=== PATIENT | female | born 2000 | race Caucasian/White ===

== ENCOUNTER 2019-04-17 21:30 | Emergency (ER) | payer MEDICAID, SELFPAY ==
[2019-04-17 21:31] VITALS: BP 134/74; PULSE 60; RESP 16; TEMP 36.6; O2SAT 98; BMI 32.8
--- NOTE | 2019-04-17 22:29 | ED.VISSUMM ---
- ER Visit Summary Date of Service: 04/17/19 Chief Complaint: Nausea, vomiting and diarrhea History of Present Illness: The patient is a 18 F no seen in past medical or surgical history. Last menstrual period was 04/03/2019. Patient states she is had nausea vomiting and diarrhea since Thursday but the diarrhea is since subsided. No hematemesis. No fever. No abdominal pain. No dysuria. Physical Examination: Young female no acute distress. Vital signs stable afebrile. She does not look septic or toxic. Mildly dehydrated. HEENT exam mild dry mixed memories. Neck nontender no lymphadenopathy. Lungs clear to auscultation bilaterally. Heart regular rhythm no murmur. Abdomen soft nontender normal bowel sounds no peritoneal signs. Patient moving all 4 extremities. No edema. Back nontender. Neurologically she is awake alert with no focal motor deficits. Test Results: None Emergency Department Course and Treatment: Treated with IV fluids x1 L IV Zofran. Repeat exam at 2345. She was actively vomiting again. Was given IV Phenergan. Patient be turned over to the overnight physician for reevaluation and final disposition. She is doing well current with her being discharged home. Treatment Plan: Discharge home. Zofran as needed for nausea. Fluids and rest. Increase diet as tolerated. Return if worse Disposition: Discharge Impression: Acute viral gastroenteritis Mild dehydration This note was generated with [employer]ienceView dictation software. It may contain incorrect words, spelling, and punctuation that were not noted in review of the chart prior to signing ED Disposition - Plan for ED Patient: Disposition: Home or Assisted Living Instructions: ED Gastroenteritis Viral Prescriptions: Ondansetron [Zofran Odt] 4 mg PO Q8H PRN PRN #10 tab PRN Reason: Nausea Referrals: Kash Salinas MD [STAFF PHYSICIAN] - 3-5 Days if not improving Additional Instructions: Plenty of fluids and rest. Increase diet as tolerated. Zofran as needed for nausea. You may dissolve and underneath her tongue or swallowed. Return if feeling worse or follow-up if not improving.
--- NOTE | 2019-04-17 22:32 | DCINST.ED_ITS ---
ED Disposition - Plan for ED Patient: Disposition: Home or Assisted Living Instructions: ED Gastroenteritis Viral Prescriptions: Ondansetron [Zofran Odt] 4 mg PO Q8H PRN PRN #10 tab PRN Reason: Nausea Referrals: Kash Salinas MD [STAFF PHYSICIAN] - 3-5 Days if not improving Additional Instructions: Plenty of fluids and rest. Increase diet as tolerated. Zofran as needed for nausea. You may dissolve and underneath her tongue or swallowed. Return if feeling worse or follow-up if not improving.
[2019-04-17] MEDS: Ondansetron 4 MG/2 ML Vial IV (22:53)
[2019-04-17] MEDS: 0.9% Normal Saline 1,000 ML 1000 ML IV (22:56)
[2019-04-18] MEDS: proMETHazine 25 MG/ML Syringe 12.5 MG IV (00:01)
[2019-04-18 00:18] VITALS: BP 148/91; PULSE 55; RESP 18; O2SAT 100
[2019-04-18] MEDS: proCHLORPERazine 10 MG/2 ML Vial IV (00:42)
[2019-04-18] MEDS: DiphenhydrAMINE 50 MG/ML Syringe 25 MG IV (00:42)
[2019-04-18 01:31] VITALS: BP 133/62; PULSE 58; RESP 18; O2SAT 100
== END 2019-04-18 01:33 | disposition home or self-care (01) ==
PROVIDERS: Emergency Provider Emergency Medicine
DX: A08.4 Viral intestinal infection, unspecified (principal); E86.0 Dehydration; Z72.0 Tobacco use
CPT/HCPCS: 96361; 96374; 96375; 99284; J7030; A4216; J2405

== ENCOUNTER 2019-09-08 14:24 | Emergency (ER) | payer MEDICAID, SELFPAY ==
[2019-09-08 14:25] VITALS: BP 129/92; PULSE 68; RESP 17; TEMP 37.2; O2SAT 100; BMI 29.9
--- NOTE | 2019-09-08 14:43 | CT_ITS ---
STUDY: CT BRAIN WITHOUT CONTRAST REASON FOR EXAM: Female, 19 years old. Loss of consciousness RADIATION DOSAGE (If Supplied By Facility): CTDIvol = ( 44.99 ) mGy, DLP = ( 745.49 ) mGycm TECHNIQUE: Transaxial CT imaging of the brain was performed without administration of intravenous contrast material. Individualized dose optimization techniques were used for this CT. COMPARISON: No relevant priors. FINDINGS: The jimmy, medulla, and cerebellum appear to be normal. The ventricles and sulci are normal in size and shape. The basal ganglia appear to be normal. The inner and outer tables of the skull are intact. The frontal, ethmoid, maxillary, and sphenoid sinuses are normal. The mastoid air cells are normal. CT/Brain/Head without Contrast IMPRESSION: Normal unenhanced CT scan of the brain. Electronically Signed: Austin Alberts, at 15:51 EDT Tel , Service support ,
--- NOTE | 2019-09-08 14:43 | EKG12_ITS ---
Test Reason : SEIZURE Blood Pressure : / mmHG Vent. Rate : 064 BPM Atrial Rate : 064 BPM P-R Int : 130 ms QRS Dur : 082 ms QT Int : 398 ms P-R-T Axes : -18 049 039 degrees QTc Int : 410 ms Normal sinus rhythm with sinus arrhythmia Normal ECG Confirmed by NOÉ MCKEON, NIKI ([id number]), state editor MARCELINO GONZALEZ ([id number]) on 09/14/2019 9:35:32 AM Referred By: MAXIMILIANO Confirmed By:MONA UMANZOR MD
--- NOTE | 2019-09-08 14:52 | NURSING ---
NO OLD EKGS
[2019-09-08 15:06] LABS: Absolute Lymphocyte Count 2.07 X10^3/uL (0.83-4.51); Absolute Neutrophil Count 4.7 X10^3/uL (2.0-7.7); Basophil# 0.05 X10^3/uL; Basophil% 0.7 % (0-1); Eosinophil# 0.17 X10^3/uL; Eosinophils% 2.3 % (0-5); Hematocrit 43.4 % (37-47); Hemoglobin 14.3 g/dL (12.0-15.0); Lymphocyte # 2.07 X10^3/ul (4.0); Lymphocyte % 27.9 % (19-41); Mean Corp Hgb Conc 32.9 g/dL (32-36); Mean Corpuscular Hgb 30.2 pg (27.0-32.0); Mean Corpuscular Volume 91.8 fL (81-99); Monocyte# 0.44 X10^3/uL; Monocyte% 5.9 % (0-10); NRBC Flagged by Analyzer 0 % (0-5); Neutrophil # 4.67 X10^3/uL (2.7-7.7); Neutrophil % 62.9 % (47-70); Platelet Count 298 K/mm3 (150-450); RBC Distribution Width CV 13.1 % (11.6-14.6); RBC Distribution Width SD 44.6 fl (35.1-43.9); Red Blood Count 4.73 M/mm3 (4.2-5.4); White Blood Count 7.4 K/mm3 (4.4-11.0)
[2019-09-08] MEDS: 0.9% Normal Saline 1,000 ML 1000 ML IV (15:13)
[2019-09-08 15:22] LABS: ALB/GLOB Ratio 0.9 RATIO (0.9-2.4); AST(SGOT) 16 U/L (15-37); Alanine Aminotransfer ALT/SGPT 23 U/L (13-56); Albumin, Serum 3.9 g/dL (3.2-5.0); Alkaline Phosphatase 102 U/L (45-117); Anion Gap 7 (5-15); BUN 7 mg/dL (7-18); BUN/Creat Ratio 9.3 RATIO (10-20); Calcium,Total 9.3 mg/dL (8.5-10.1); Chloride 109 mmol/L (98-107); Creatinine, Serum 0.76 mg/dL (0.55-1.02); EST Glomerular Filtration Rate 104 mL/min (>60); Est Glom Filt Rate - Afr Amer 125 mL/min (>60); Estimated Creatinine Clearance 110.54 ml/min; Globulin 4.3 g/dL (2.2-4.2); Glucose 81 mg/dL (74-106); Protein, Total 8.2 g/dL (6.4-8.2); Sodium Level 141 mmol/L (136-145)
--- NOTE | 2019-09-08 16:03 | ED.VISSUMM ---
- ER Visit Summary Date of Service: 09/08/19 Chief Complaint: Seizure History of Present Illness: The patient is a [address] Del Valle. She reports that 10 days ago she was at a concert and been standing outside for approximately 2 hours when she began feeling shaky. She states that she felt like her vision started to Jorden out and then she fell to the ground. She had an episode of tonic-clonic movement. She is unsure how long this lasted. She did bite her tongue. She was not incontinent of urine. She did have a postictal period. Patient denies any alcohol or drug use prior to this. She has not had any seizure since activity since this. However, she feels shaky. Patient reports that she has been drinking heavily for the past month. She drinks 1/5 of vodka a day. She reports that she occasionally uses marijuana. She denies any other drug use. Physical Examination: Vitals: Stable. Afebrile. General: Well-nourished and well-developed. Head: Normocephalic atraumatic. Neck: Supple, no lymphadenopathy. No JVD. Nontender. Cardiovascular: Regular rate and rhythm. No murmurs. Respiratory: No respiratory distress. Clear to auscultation bilaterally. Abdominal: Soft, nontender, nondistended, normal bowel sounds. No guarding, rebound, or peritoneal signs. Back: Nontender. Extremities: Nontender, no edema. Skin: Normal color, no rash. Neurologic: Alert and oriented ?3. Cranial nerves II through XII are intact. Normal strength and sensation. Psych: Normal affect. Test Results: EKG is sinus at 64 with normal intervals. There are no acute changes. CBC is normal. Chem-7 is more for chloride 109. LFTs microglobulin 4.3. test is negative. CT brain is normal. Emergency Department Course and Treatment: Patient had an IV placed. She was given a liter normal saline. She is resting comfortably. Treatment Plan: Patient will be discharged instructions to follow-up with Dr. Cannon as soon as possible. At this time she will not be placed on an antiepileptic. However, she is instructed to not drive again until cleared by neurology. return to the emergency department for any worsening symptoms. Disposition: To home in improved and stable condition. Impression: 1. Seizure, new onset. This note was generated with Dragon dictation software. It may contain incorrect words, spelling, and punctuation that were not noted in review of the chart prior to signing ED Disposition - Plan for ED Patient: Instructions: SEIZURE, New Onset, Unk Cause [Adult] Referrals: Scooby Cannon MD [STAFF PHYSICIAN] - As soon as possible Hali Del Valle [Primary Care Provider] - As soon as possible Additional Instructions: Do NOT drive until cleared by Neurology.
[2019-09-08 16:20] LABS: Internal QC Validated? YES +Cl - CLEAR BKGD; Pregnancy, Serum, hCG Quali. NEGATIVE Negative
[2019-09-08 16:49] VITALS: BP 114/78; PULSE 68; RESP 16; O2SAT 95
== END 2019-09-08 16:51 | disposition home or self-care (01) ==
PROVIDERS: Emergency Provider Emergency Medicine; Family Provider Family Medicine; PCP Family Medicine
DX: G40.909 Epilepsy, unspecified, not intractable, without status epilepticus (principal); R06.00 Dyspnea, unspecified; R19.7 Diarrhea, unspecified; F12.90 Cannabis use, unspecified, uncomplicated; F10.99 Alcohol use, unspecified with unspecified alcohol-induced disorder; F17.200 Nicotine dependence, unspecified, uncomplicated
CPT/HCPCS: 70450; 80053; 84703; 85025; 93005; 96360; 96361; 99283; J7030; A4216

== ENCOUNTER 2019-10-03 18:15 | Emergency (ER) | payer MEDICAID, SELFPAY ==
[2019-10-03 18:16] VITALS: BP 148/87; PULSE 96; RESP 21; TEMP 37; O2SAT 100; BMI 28.1
[2019-10-03 19:02] LABS: Absolute Lymphocyte Count 6.13 X10^3/uL (0.83-4.51); Absolute Neutrophil Count 4.3 X10^3/uL (2.0-7.7); Basophil# 0.03 X10^3/uL; Basophil% 0.3 % (0-1); Eosinophil# 0.19 X10^3/uL; Eosinophils% 1.7 % (0-5); Hematocrit 40.4 % (37-47); Hemoglobin 13.5 g/dL (12.0-15.0); Lymphocyte # 6.13 X10^3/ul (4.0); Lymphocyte % 54.4 % (19-41); Mean Corp Hgb Conc 33.4 g/dL (32-36); Mean Corpuscular Hgb 29.8 pg (27.0-32.0); Mean Corpuscular Volume 89.2 fL (81-99); Mean Platelet Vol. 9.4 fl (6.2-12.0); Monocyte# 0.58 X10^3/uL; Monocyte% 5.2 % (0-10); NRBC Flagged by Analyzer 0 % (0-5); Neutrophil # 4.28 X10^3/uL (2.7-7.7); POSITIVE DIFFERENTIAL YES; POSITIVE MORPHOLOGY YES; Platelet Count 265 K/mm3 (150-450); RBC Distribution Width SD 42.5 fl (35.1-43.9); Red Blood Count 4.53 M/mm3 (4.2-5.4); White Blood Count 11.3 K/mm3 (4.4-11.0)
[2019-10-03 19:25] LABS: ALB/GLOB Ratio 0.8 RATIO (0.9-2.4); AST(SGOT) 55 U/L (15-37); Alanine Aminotransfer ALT/SGPT 50 U/L (13-56); Albumin, Serum 3.4 g/dL (3.2-5.0); Alkaline Phosphatase 109 U/L (45-117); Anion Gap 10 (5-15); BUN 5 mg/dL (7-18); BUN/Creat Ratio 7.8 RATIO (10-20); Calcium,Total 8.9 mg/dL (8.5-10.1); Chloride 109 mmol/L (98-107); Creatinine, Serum 0.64 mg/dL (0.55-1.02); EST Glomerular Filtration Rate 125 mL/min (>60); Est Glom Filt Rate - Afr Amer 152 mL/min (>60); Estimated Creatinine Clearance 136.35 ml/min; Glucose 86 mg/dL (74-106); Potassium 3.6 mmol/L (3.5-5.1); Protein, Total 7.4 g/dL (6.4-8.2); Sodium Level 140 mmol/L (136-145)
[2019-10-03] MEDS: 0.9% Normal Saline 1,000 ML 1000 ML IV (19:34)
[2019-10-03 19:40] LABS: Bacteria 0 SEEN /hpf (None Seen); Mucous, Urine 0 SEEN /hpf (<or=2+); Red Blood Cells-Urine 0 SEEN /hpf (0-5); Squamous Epithelial Cells - UA 0 SEEN /hpf (5-10); White Blood Cells 0 SEEN /hpf (0-5)
[2019-10-03 19:42] LABS: Color, Urine Yellow (Yellow); Glucose, Dipstick Normal (Normal); Ketone-Dipstick Negative (Negative); Leukocyte Esterase-Dipstick Negative /ul (Negative); Nitrite-Dipstick Negative (Negative); Occult Blood-Urine Negative /ul (Negative); Protein-Dipstick Negative (Negative); Specific Gravity, Urine 1.015 (1.002-1.030); Urine Bilirubin Dipstick Negative (Negative); Urine Clarity Clear (Clear); Urine Urobilinogen Normal (Normal)
[2019-10-03 19:51] LABS: Internal QC Validated? YES +Cl - CLEAR BKGD; Pregnancy, Serum, hCG Quali. NEGATIVE Negative
[2019-10-03 19:54] LABS: Differential Indicated SCAN CRITERIA MET
[2019-10-03 19:55] LABS: Platelet Estimate ADEQUATE (ADEQ); Reactive Lymphocyte 3+
[2019-10-03 19:56] LABS: Red Cell Morphology NORM C+C NORMAL (NORM C&C)
--- NOTE | 2019-10-03 22:27 | ED.VISSUMM ---
- ER Visit Summary Date of Service: 10/03/19 Chief Complaint: Headache History of Present Illness: The patient is a 19 F who presents with a headache that began yesterday. Patient states the headache is over the back of her head. Patient states she feels hot and numb over this area. She also states she feels hot and numb in both of her arms. Patient states nothing makes it better or worse. Patient does admit to some blurred vision. Patient also admits to a sore throat rhinorrhea. Patient states she was recently started on control pills. Patient denies any trauma or injury. Physical Examination: Vital signs are stable. Patient is afebrile. Patient is in no acute distress. Oral mucosa is pink and moist. Neck is supple. Trachea is midline. Heart was regular rate and rhythm. Lungs are clear and equal bilaterally. Abdomen is soft and nontender. Cranial nerves II through XII are intact. There are no focal motor or sensory deficits noted. Extremities are intact. There is no calf tenderness noted. Test Results: CBC shows a slight leukocytosis of 11.3. Comprehensive metabolic profile, urinalysis, and hCG were obtained and were all normal. Emergency Department Course and Treatment: Patient was given IV fluids. Patient is feeling better on reevaluation. Mother states the patient is scheduled for an MRI soon. Mother was instructed to follow-up with this. Patient and her mother were advised of the normal laboratory findings. Patient and her mother were instructed to follow-up with her primary care physician in 5 to 7 days for further evaluation. Patient and mother understood and were agreeable with the plan. All questions were answered. Disposition: Discharge home Impression: 1. Headache 2. Paresthesias This note was generated with [employer] dictation software. It may contain incorrect words, spelling, and punctuation that were not noted in review of the chart prior to signing ED Disposition - Plan for ED Patient: Disposition: Home or Assisted Living Diagnosis: Headache, Paresthesias Instructions: Paraesthesias Referrals: Hali Del Valle [Primary Care Provider] - 3-5 Days
[2019-10-03 22:47] VITALS: RESP 16
[2019-10-04 12:44] LABS: Pathologist Review Reviewed
== END 2019-10-03 22:47 | disposition home or self-care (01) ==
PROVIDERS: Emergency Provider Emergency Medicine; Family Provider Family Medicine; PCP Family Medicine
DX: R51 Headache (principal); R20.2 Paresthesia of skin; H53.8 Other visual disturbances; J02.9 Acute pharyngitis, unspecified; J34.89 Other specified disorders of nose and nasal sinuses; R00.0 Tachycardia, unspecified; M54.2 Cervicalgia; R53.1 Weakness; Z79.3 Long term (current) use of hormonal contraceptives; F17.200 Nicotine dependence, unspecified, uncomplicated
CPT/HCPCS: 80053; 81001; 84703; 85025; 96360; 96361; 99284; J7030; A4216